=== PATIENT | female | born 1975 | race African-American/Black ===

== ENCOUNTER 2016-08-15 18:39 | Emergency (ER) | payer MEDICARE, MEDICAID ==
[~2016-08-15] VITALS: Ht 157.5 cm; Wt 73.5 kg
[2016-08-15 18:59] VITALS: BP 117/71
[2016-08-15] MEDS ORDERED: NAPR-679 PO (18:59)
[2016-08-15] MEDS ORDERED: IBUP-1510 PO (18:59)
[2016-08-15] MEDS ORDERED: NAPR-681 PO (18:59)
[2016-08-15] MEDS ORDERED: LIDOCAINE HCL 1% 20ML VIAL (Pyxis) INJ INFIL ONE (21:00)
[2016-08-15] MEDS ORDERED: BACITRACIN ZINC OINT UDPKT TOP ONE (21:15)
== END 2016-08-15 21:34 | disposition home or self-care (01) ==
LOC: ER 20:59
DX: L03.011 Cellulitis of right finger (principal); R03.0 Elevated blood-pressure reading, without diagnosis of hypertension; F17.210 Nicotine dependence, cigarettes, uncomplicated
CPT/HCPCS: 10060; 81025; 99283; J3490

== ENCOUNTER 2024-02-20 20:02 | Emergency (ER) | payer OTHER, BC ==
[~2024-02-20] VITALS: Ht 167.6 cm; Wt 72.0 kg
[~2024-02-20 20:02] MED LIST: IBUP-2030 PO; NAPR-679 PO; NAPR-681 PO
[2024-02-20 20:38] VITALS: TEMP 98; O2SAT 100
[2024-02-20] MEDS ORDERED: IBUP-2030 MT (22:17)
[2024-02-20] MEDS ORDERED: CYCL5TAB MT (22:17)
[2024-02-20 22:56] VITALS: BP 134/69; PULSE 55; RESP 16; O2SAT 100
[2024-02-20] MEDS: IBUPROFEN 800MG TABLET PO ONE (22:56)
== END 2024-02-20 22:57 | disposition home or self-care (01) ==
LOC: ER 20:02
DX: M25.511 Pain in right shoulder (principal); M25.531 Pain in right wrist; M25.552 Pain in left hip; E11.9 Type 2 diabetes mellitus without complications; Z79.899 Other long term (current) drug therapy
CPT/HCPCS: 73030; 73502; 99284